=== PATIENT | female | born 1975 | race African-American/Black ===

== ENCOUNTER 2018-07-25 07:41 | Inpatient (IN) | payer OTHER ==
[~2018-07-25] VITALS: Ht 154.9 cm; Wt 51.0 kg
[2018-07-25 08:14] VITALS: BP 121/82
[2018-07-25 11:30] VITALS: BP 102/51
--- NOTE | 2018-07-25 11:50 | NUR ---
RECEIVED PT FROM OR STAFF. PT AWAKE, ALERT, ORIENTED, FAMILY AT BEDSIDE. TELE MONITOR#1 SINUS RHYTHM ON MONITOR. DENIES CHEST PAIN, PT C/O PAIN TO VAGINAL AREA (SURGICAL SITE) MEDICATED PER EMAR, PT TOLERATED MEDICATION WELL. S1S2 ON AUSCULTATION, EFFORTLESS BREATHING ON ROOM AIR. 98% PALPABLE PULSES +2 TO ALL EXTREMITIES, SCDS IN PLACE. BOWEL SOUNDS ACTIVE TO ALL QUADRANTS, ABD SOFT TO PALPATION. PT REPORTS VOIDING WELL. AMBULATORY AT BASELINE, SKIN INTACT. ORIENTED PT TO ROOM ENVIRONMENT, CALL LIGHT WITHIN REACH. BED IN LOWEST POSITION. WILL CONTINUE TO MONITOR.
[2018-07-25 15:30] VITALS: BP 107/61
--- NOTE | 2018-07-25 15:35 | NUR ---
PROVIDED HYGIENE CARE. BED LINEN CHANGED. ASSISTED PT OUT OF BED AND BACK TO BED. STEADY GAIT NOTED, PT DENIES NAUSEA, VOMITING. PT REPORTS PAIN IS 2/10 TO SURGICAL SITE, TOLERABLE AT THAT LEVEL PER PT. PAD REPLACED MILD BLOOD TINGED ON PAD WITH NO ACTIVE BLEEDING AT MOMENT. EFFORTLESS BREATHING ON ROOM AIR. PT PROVIDED WITH CLEAR LIQUID SNACK PER REQUEST. CALL LIGHT WITHIN REACH, BED IN LOWEST POSITION. WILL CONTINUE TO MONITOR.
[2018-07-25 16:45] VITALS: BP 137/74
--- NOTE | 2018-07-25 18:20 | NUR ---
PT IN FOWLERS, DENIES PAIN, REPORTS COMFORT AT MOMENT, EFFORTLESS BREATHING ON ROOM AIR. NO ACTIVE BLEEDING AT SURGICAL SITE. IV INFUSING WELL TO LAC#22. BED IN LOWEST POSITION, CALL LIGHT WITHIN REACH. AT BEDSIDE.
--- NOTE | 2018-07-25 19:35 | NUR ---
PT. AWAKE AND ALERT, SITTING UP IN BED, SIGN. OTHER AT BEDSIDE. PT. ORIENTED X4, DENIES HEADACHE OR DIZZINESS. BREATH SOUNDS CLEAR THROUGHOUT LUNG LOWERY, RESP. EVEN, UNLABORED. NO SOB NOTED. ABD. SOFT AND FLAT, BOWEL SOUNDS ACTIVE. DENIES NAUSEA. ABD. PAINLEVEL 2/10 PER PT. DENIES NEED FOR PAIN MEDICATION. NO EDEMA TO BLE.PEDAL PULSES STRONG. IVF LR AT 125CC/HR. CALL LIGHT WITHIN REACH.
--- NOTE | 2018-07-25 21:20 | NUR ---
PT. C/O MILD DISCOMFORT TO LOWER ABD. PRN MORPHINE IVP GIVEN ORDERED. WILL MONITOR.
[2018-07-25 21:29] VITALS: BP 110/59
--- NOTE | 2018-07-25 23:44 | NUR ---
PT. W/ EYES CLOSED, APPEARS TO BE SLEEPING AND COMFORTABLE. IVF INFUSING WELL. CALL LIGHT REMAINS WITHIN REACH.
--- NOTE | 2018-07-26 04:02 | NUR ---
PT. AWAKE, C/O SLIGHT DISCOMFORT IN LOWER ABD. REGION. STATED THAT IT WAS NOT TOO MUCH LIKE PAIN, BUT JUST UNCOMFORTABLE. PRN MOTRIN GIVEN. WILL CONTINUE TO MONITOR. CALL LIGHT WITHIN REACH.
[2018-07-26 04:58] VITALS: BP 111/57
--- NOTE | 2018-07-26 06:20 | NUR ---
PT. HAD MINIMAL BLEEDING THROUGHOUT THE NIGHT. PERIPAD W/ SCANT AMOUNT OF BLOOD NOTED. NO CLOTS. PT. DID HAVE BLEEDING, WHICH APPEARS TO BE DARKER RED BLOOD, NOT JENNIFER BLEEDING, IN SCANT AMOUNT, WHENEVER SHE VOIDED. DENIES NEED FOR PAIN MEDICATION AT THIS TIME. DOZING OFF AND ON IN SLEEP. IVF INFUSING WELL, SITE REMAINS INTACT. CALL LIGHT WITHIN REACH. WILL ENDORSE PT. CARE TO INCOMING NURSE.
[2018-07-26 06:32] LABS: BASOPHIL % 0.3 % (0-2)
[2018-07-26 06:33] LABS: PLATELET COUNT 127 x10^3mcL (130-400)
--- NOTE | 2018-07-26 07:40 | NUR ---
RC'D PT RESTING IN BED WITH NO APPARENT SIGNS OF DISTRESS. A/A/O/X4, SPEECH CLEAR AND APPROPRIATE. DENIES FULLER/DIZZINESS. ON TELE, DENIES CHEST PAIN/PRESSURE. PALP PULSES, NO EDEMA NOTED. RESPIRATIONS EQUAL AND UNLABORED. LUNGS CTA. ON RA, DENIES SOB. ABDOMEN SOFT AND NONTENDER AT THIS TIME. ACTIVE BS. DENIES N/V. VOIDS FREELY. SCANT DARK RED DRAINAGE NOTED UPON URINATION. AMBULATORY. SKIN W/D/I. DENIES PAIN AT THIST ZACH. IV PATENT AND INTACT. BED IN LOW POSITION. CALL LIGHT IN REACH. WILL CONTINUE TO MONITOR
[2018-07-26 07:45] VITALS: BP 101/54
--- NOTE | 2018-07-26 08:37 | NUR ---
AM MEDICATION GIVEN. PT TOLERATED WELL. RESPIRATIONS EQUAL AND UNLABORED. ON RA, DENIES SOB. PT DENIES PAIN AT THIS TIME. BED IN LOW POSITION. CALL LIGHT IN REACH. WILL CONTINUE TO MONITOR
--- NOTE | 2018-07-26 10:31 | NUR ---
PT RESTING IN BED WITH FAMILY PRESENT. PT ANXIOUS TO DC. NO ORDERS AT THIS TIME. WILL CALL DR TO F/U ON ANY DC ORDERS
--- NOTE | 2018-07-26 10:55 | NUR ---
DR DURHAM CALLED AND NOTIFIEDOF PTS CURRENT STATUS. PER DR DURHAM PT OKAY TO DC AT THIS TIME. RC'D VERBAL ORDERS TO DC HOME AT THIS TIME. PT NOTIFIED AND MADE AWARE TO MAKE A F/U APPT WITH DR DURHAM. PT VERBALIZED UNDERSTANDING OF INSTRUCTIONS.
[2018-07-26 11:57] VITALS: BP 101/54
--- NOTE | 2018-07-26 12:23 | NUR ---
PT PROVIDED WITH DC HOME INSTUCTIONS. PT PROVIDED WITH AFTER CARE FOR POST SURGERY. PT INFORMED TO TAKE MEDIACTIONS OREDERED BY . PT INFORMED THAT IF WORSENING S/S WERE TO OCCUR TO RETURN TO ED OR REPORT TO PCP. PT AND FAMILY VERBALIZED UNDERSTANDING OF INSTRUCTIONS. TELE AND IV DC'D, CATHETER INTACT. NO REDNESS/INFLAMMATION/DISCOMFORT NOTED. PT TAKEN DOWN TO LOBBY WITH ALL PERSONAL BELONGINGS IN HAND FREE OF ANY APPARENT SIGNS OF DISTRESS WITH RN PRESENT AT BEDSIDE.
== END 2018-07-26 12:19 | disposition home or self-care (01) | DRG 747 ==
LOC: MU 07:41 → DU 07:41 → MU 09:00 → DU 11:12
PROVIDERS: ADMIT Obstetrics & Gynecology
PROC: 0UQF0ZZ Repair Cul-de-sac, Open Approach (ICD-10-PCS; 2018-07-25)
PROC: 0JQC0ZZ Repair Pelvic Region Subcutaneous Tissue and Fascia, Open Approach (ICD-10-PCS; 2018-07-25)
PROC: 0TVD0ZZ Restriction of Urethra, Open Approach (ICD-10-PCS; 2018-07-25)
PROC: 0JQC0ZZ Repair Pelvic Region Subcutaneous Tissue and Fascia, Open Approach (ICD-10-PCS; principal; 2018-07-25 09:00)
DX: N81.11 Cystocele, midline (principal); N81.6 Rectocele; N81.5 Vaginal enterocele; N39.3 Stress incontinence (female) (male); N32.81 Overactive bladder; Z90.710 Acquired absence of both cervix and uterus
CPT/HCPCS: C1758; J0690; J2175; J2250; J2270; J2405; J2704; J3010; J7120